=== PATIENT | male | born 1950 | race Caucasian/White ===

== ENCOUNTER → 2021-11-18 | Outpatient (CLI) | payer MEDICARE ==
--- NOTE | 2021-11-18 14:01 | MR ---
EXAMINATION TYPE: MR brain wo/w con DATE OF EXAM: 11/18/2021 COMPARISON: 09/30/2014 HISTORY: D32.0 menengioma, Follow Up study TECHNIQUE: Multiplanar, multisequence images of the brain and brainstem is performed without and with IV contras t, utilizing 9 mL intravenous Gadavist . There is diffusely enhancing extra-axial mass involving the left cerebellar pontine angle and left am bient cistern also extending into the intracranial fossa on the left. Is consistent with a meningioma . It is grown in the interval from 3.7 cm in greatest diameter to 4.2 cm in greatest diameter and fro m 1.5 cm along the short axis to 1.6 cm. There is moderate to marked mass effect on the left aspect o f the and brainstem. The aqueduct and fourth ventricle does not appear grossly compressed but there has been interval enla rgement of the third and lateral ventricles in the interval. There are now moderately dilated. No other enhancing masses are seen within the brain parenchyma. There is no shift in the midline stru ctures Based on diffusion-weighted imaging, there is no evidence of diffusion restriction or acute ischemic event There are mild to moderate chronic ischemic white matter changes which are stable. IMPRESSION: 1. Interval growth in the enhancing extra-axial mass in the left ambiens cistern and cerebellar ponti ne angle as described above. The findings consistent with a growing meningioma. 2. Interval enlargement of the third and lateral ventricles as described above. 3. No shift of midline structures. 4. No new lesions seen. 5. No acute ischemic event.
== END | disposition home or self-care (01) ==
LOC: RADMRIMAIN 06:07
PROVIDERS: ATTEND Psychiatry & Neurology Neurology
DX: D32.0 Benign neoplasm of cerebral meninges (principal)
CPT/HCPCS: 70553; A9585

== ENCOUNTER → 2023-11-23 | Outpatient (CLI) | payer MEDICARE ==
--- NOTE | 2023-11-23 08:23 | MR ---
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 The patient was then given intravenous contrast and multi planar, T1 fat-saturation images wer e obtained. IV Contrast: 9 cc Gadavist FINDINGS: The left Ambien cistern extra-axial mass at the base of the skull measures similarly on cor onal imaging at 34 x 33 mm, axial imaging measuring 39 x 26 mm and on sagittal imaging measuring 36 x 33 mm when taking into account slice selection. This demonstrates smooth homogenous enhancement. The coleman-white junctions, ventricular system, basal cisterns appear unremarkable. Diffusion-weighted imaging shows no evidence of restricted diffusion to suggest acute/subacute infarct. Intracranial ar terial flow voids are maintained. Midline structures show no abnormality. Scattered foci of high T2 s ignal intensity are seen within the periventricular white matter. The susceptibility weighted images do not reveal any evidence for micro-hemorrhage. After administration of gadolinium, no abnormal enha ncement is seen. The bone marrow signal is within normal limits. Paranasal sinuses and mastoid air cells: No significant paranasal sinus disease. Visualized orbits: Orbital contents are intact. IMPRESSION: 1. Stable given differences in technique enhancing extra-axial mass in the left ambiens cistern and c erebellar pontine angle as described above. 2. No evidence of intra-axial mass, acute/subacute infarct, or abnormal enhancement. 3. Nonspecific white matter changes, likely related to small vessel ischemic disease.
== END | disposition home or self-care (01) ==
LOC: RADMRIMAIN 06:38
PROVIDERS: ATTEND Internal Medicine
DX: D32.0 Benign neoplasm of cerebral meninges (principal); G31.89 Other specified degenerative diseases of nervous system
CPT/HCPCS: 70553; A9585